=== PATIENT | male | born 1995 | race African-American/Black ===

== ENCOUNTER 2019-07-19 17:30 | Emergency (ER) | payer SELFPAY ==
[~2019-07-19] VITALS: Ht 177.8 cm; Wt 64.4 kg
[2019-07-19 18:06] VITALS: BP 129/76
[2019-07-19 18:28] LABS: BILIRUBIN,URINE NEG (NEG); CLARITY,URINE HAZY; COLOR,URINE YELLOW; GLUCOSE,URINE NEG (NEG)
[2019-07-19 18:29] LABS: BACTERIA,URINE 0 /HPF (0-FEW); NITRITE,URINE NEG (NEG); RBC,URINE 0 /HPF (0-2); SQUAMOUS EPITHELIAL CELL,UR OCC /LPF
--- NOTE | 2019-07-19 18:29 | PHYS DOC ---
Past History Past Medical History: No Pertinent History Past Surgical History: No Surgical History Alcohol Use: None Drug Use: None Adult General Chief Complaint Chief Complaint: SEXUALLY TRANSMITTED DISEASE.. ." I am sharing a STD with my girl friend.. we both got a discharge.. we were together for a while.. but then we were seeing other people.. and now we bact together... we both have a discharge..." HPI HPI Patient is a 24 year old male who presents with above hx and complaints dysuria and discharge on urination. Patient has been having unprotected sex with suspect individual. Patient has had approximately 20 unprotected sex partners in his life. Has had history of possible previous STDs. Patient states his last test for HIV was negative. No history immunosuppression. No history of travel. Is current and former girlfriend also has a discharge and dysuria. Both he presented to the emergency room room for treatment. Her name is Bailee Kim in Room 2#, Review of Systems Review of Systems Constitutional: Denies fever or chills [] Eyes: Denies change in visual acuity, redness, or eye pain [] HENT: Denies nasal congestion or sore throat [] Respiratory: Denies cough or shortness of breath [] Cardiovascular: No additional information not addressed in HPI [] GI: Denies abdominal pain, nausea, vomiting, bloody stools or diarrhea [] : Complaints of dysuria and penile discharge] Musculoskeletal: Denies back pain or joint pain [] Integument: Denies rash or skin lesions [] Neurologic: Denies headache, focal weakness or sensory changes [] Endocrine: Denies polyuria or polydipsia [] All other systems were reviewed and found to be within normal limits, except as documented in this note. Family History Family History Noncontributory Current Medications Current Medications See nursing for home meds Allergies Allergies Allergies Coded Allergies Type Severity Reaction Last Updated Verified No Known Drug Allergies 07/19/19 No Physical Exam Physical Exam Constitutional: Well developed, well nourished, no acute distress, non-toxic appearance. [] HENT: Normocephalic, atraumatic, bilateral external ears normal, oropharynx moist, no oral exudates, nose normal. [] Eyes: PERRLA, EOMI, conjunctiva normal, no discharge. [] Neck: Normal range of motion, no tenderness, supple, no stridor. [] Cardiovascular:Heart rate regular rhythm, no murmur [] Lungs & Thorax: Bilateral breath sounds with apex with few scattered wheezes on auscultation [] Abdomen: Bowel sounds normal, soft, no tenderness, no masses, no pulsatile masses. [] Circumcised male with mild penile discharge. Skin: Warm, dry, no erythema, no rash. [] Back: No tenderness, no CVA tenderness. [] Extremities: No tenderness, no cyanosis, no clubbing, ROM intact, no edema. [] Neurologic: Alert and oriented X 3, normal motor function, normal sensory function, no focal deficits noted. [] Psychologic: Affect anxious, judgement normal, mood normal. [] Current Patient Data Vital Signs Vital Signs Date Time Temp Pulse Resp B/P (MAP) Pulse Ox O2 Delivery O2 Flow Rate FiO2 07/19/19 18:06 82 18 98 Room Air EKG EKG [] Radiology/Procedures Radiology/Procedures [] Course & Med Decision Making Course & Med Decision Making Pertinent Labs and Imaging studies reviewed. (See chart for details) Patient practice safe sex. Patient take Keflex 500 mg 3 times a day. Patient follow-up pending cultures. May need retesting to make sure his dysuria has cleared. Inform all sexual partners. Follow-up health department and consider getting HIV testing. Patient also consider follow-up primary care and get HPV vaccination. Impression: 1. Urethritis 2. Suspect STD [] Dragon Disclaimer Dragon Disclaimer This electronic medical record was generated, in whole or in part, using a voice recognition dictation system. Departure Departure: Disposition: HOME/RESIDENCE PRIOR TO ADM Condition: STABLE Referrals: PCP,NO (PCP) Scripts Cephalexin (KEFLEX) 500 Mg Capsule 500 MG PO TID for urethritis for 7 Days, BOTTLE Prov: ZENOBIA LAIRD MD 07/19/19 [place] Disclaimer This chart was dictated in whole or in part using Voice Recognition software in a busy, high-work load, and often noisy Emergency Department environment. It may contain unintended and wholly unrecognized errors or omissions. ZENOBIA LAIRD MD Jul 19, 2019 18:28
[2019-07-19] MEDS ORDERED: metroNIDAZOLE 500 MG TABLET PO ONE (18:30)
[2019-07-19] MEDS ORDERED: AZITHROMYCIN 250 MG TABLET. PO ONE (18:30)
[2019-07-19] MEDS ORDERED: ONDANSETRON ODT 4 MG TAB.RAPDIS PO ONE (18:30)
[2019-07-19] MEDS ORDERED: cefTRIAXone IM 1 GM VIAL IM ONE (18:30)
[2019-07-19] MEDS ORDERED: CEPH-264 PO (18:37)
== END 2019-07-19 18:45 | disposition home or self-care (01) ==
LOC: ER 17:30
DX: A56.01 Chlamydial cystitis and urethritis (principal); Z20.2 Contact with and (suspected) exposure to infections with a predominantly sexual mode of transmission
CPT/HCPCS: 36415; 81001; 87491; 87591; 99284

== ENCOUNTER 2021-02-27 10:54 | Emergency (ER) | payer SELFPAY ==
[~2021-02-27] VITALS: Ht 175.3 cm; Wt 68.0 kg
[~2021-02-27 10:54] MED LIST: CEPH-264 PO
[2021-02-27 10:58] VITALS: BP 155/79
[2021-02-27 11:38] LABS: CALCIUM 8.7 mg/dL (8.5-10.1); CREATININE 1.3 mg/dL (0.7-1.3); GFR 81.4; POTASSIUM 3.7 mmol/L (3.5-5.1)
--- NOTE | 2021-02-27 11:39 | PHYS DOC ---
Past History Past Medical History: No Pertinent History (FELA CARNEY APRN) Past Surgical History: No Surgical History (FELA CARNEY APRN) Alcohol Use: Occasionally Drug Use: None (FELA CARNEY APRN) General Adult EDM: Chief Complaint: OVERDOSE HPI: HPI: Patient is a 25-year-old male who presents with EMS after being found on the side of the road with altered mental status. Patient states "my right treatment for talk about this morning to work, my boss ended up letting me go". "It was pouring down rain I did not have a ride so I started walking to my girlfriend's uncle's house, I got to [place] and is lasting you remember". EMS states that when patient was found he was altered, stumbling around. EMS gave 1 dose of Narcan and patient became more alert. Patient denies taking any drugs this m orning. Patient states he uses marijuana occasionally. Patient is alert and oriented and hemodynamically stable upon arrival to the ER. Patient denies pain. Denies medical history. (FELA CARNEY APRN) Review of Systems: Review of Systems: Constitutional: Denies fever or chills Eyes: Denies change in visual acuity HENT: Denies nasal congestion or sore throat Respiratory: Denies cough or shortness of breath Cardiovascular: Denies chest pain or edema GI: Denies abdominal pain, nausea, vomiting, bloody stools or diarrhea : Denies dysuria Musculoskeletal: Denies back pain or joint pain Integument: Denies rash Neurologic: Denies headache, focal weakness or sensory changes Endocrine: Denies polyuria or polydipsia Lymphatic: Denies swollen glands Psychiatric: Denies depression or anxiety (FELA CARNEY APRN) Allergies: Allergies: Allergies Coded Allergies Type Severity Reaction Last Updated Verified No Known Drug Allergies 07/19/19 No (FELA CARNEY APRN) Physical Exam: PE: Constitutional: Well developed, well nourished, no acute distress, non-toxic appearance. [] HENT: Normocephalic, atraumatic, bilateral external ears normal, oropharynx moist, no oral exudates, nose normal. [] Eyes: PERRLA, EOMI, conjunctiva normal, no discharge. [] Neck: Normal range of motion, no tenderness, supple, no stridor. [] Cardiovascular:Heart rate regular rhythm, no murmur [] Lungs & Thorax: Bilateral breath sounds clear to auscultation [] Abdomen: Bowel sounds normal, soft, no tenderness, no masses, no pulsatile masses. [] Skin: Warm, dry, no erythema, no rash. [] Back: No tenderness, no CVA tenderness. [] Extremities: No tenderness, no cyanosis, no clubbing, ROM intact, no edema. [] Neurologic: Alert and oriented X 3, normal motor function, normal sensory function, no focal deficits noted. [] Psychologic: Affect normal, judgement normal, mood normal. [] (FELA CARNEY APRN) Current Patient Data: Vital Signs: Vital Signs Date Time Temp Pulse Resp B/P (MAP) Pulse Ox O2 Delivery O2 Flow Rate FiO2 02/27/21 10:58 98.6 93 18 155/79 100 Room Air (FELA CARNEY APRN) EKG: EKG: Sinus rhythm. Heart rate [address] elevation or depression. Read by Dr. Rendon at 1334. [] (FELA CARNEY APRN) Radiology/Procedures: Radiology/Procedures: []CT brain without contrast. HISTORY: Confusion CT scan the brain was done without contrast. Sinuses are clear. There is no intracranial hemorrhage or subdural hematoma. There is no mass effect or shift of the midline. Ventricles are normal in size. An acute CVA is not identified. IMPRESSION: 1. No intracranial hemorrhage or acute finding noted. PQRS Compliance Statement: One or more of the following individualized dose reduction techniques were utilized for this examination: 1. Automated exposure control 2. Adjustment of the mA and/or kV according to patient size 3. Use of iterative reconstruction technique Electronically signed by: Frankie Pabon MD (02/27/2021 11:40 AM) [facility] (FELA CARNEY APRN) Heart Score: C/O Chest Pain: No Risk Factors: Risk Factors: DM, Current or recent (<one month) smoker, HTN, HLP, family history of CAD, obesity. Risk Scores: Score 0 - 3: 2.5% MACE over next 6 weeks - Discharge Home Score 4 - 6: 20.3% MACE over next 6 weeks - Admit for Clinical Observation Score 7 - 10: 72.7% MACE over next 6 weeks - Early Invasive Strategies (FELA CARNEY APRN) Course & Med Decision Making: Course & Med Decision Making Pertinent Labs and Imaging studies reviewed. (See chart for details) [] 25-year-old male presents with EMS after being found walking on the side of the road, stumbling, altered mental status. Patient states the last thing he remembers is walking to his girlfriend's uncle's house and then waking up with EMS. Patient was given Narcan by EMS. Patient is alert and oriented and hemodynamically stable on arrival. CT head ordered to rule out acute abnormalit y. UDS. Patient denies using any illegal drugs. CT head negative for acute abnormalities. All labs unremarkable. UDS positive for marijuana. Monitor the patient for 2 hours in emergency room due to EMS giving Narcan. Patient was alert and oriented and hemodynamically stable while in the ER and upon disposition. Gave patient strict return precautions. Patient states he understands discharge instructions. (FELA CARNEY APRN) Dragon Disclaimer: Dragon Disclaimer: This electronic medical record was generated, in whole or in part, using a voice recognition dictation system. (FELA CARNEY APRN) Attending Co-Sign The patient was seen and interviewed as well as examined at the bedside. The chart was reviewed. The case was discussed. Agree with the plan of care. (CRISTIAN RENDON DO) Departure Departure: Impression: Primary Impression: AMS (altered mental status) Qualified Codes: R41.82 - Altered mental status, unspecified Additional Impression: Overdose Qualified Codes: T50.901A - Poisoning by unspecified drugs, medicaments and biological substances, accidental (unintentional), initial encounter Disposition: HOME / SELF CARE / HOMELESS Condition: STABLE Referrals: PCP,NO (PCP) Patient Instructions: Altered Mental Status Additional Instructions: You are seen in the emergency room after being found on the side of the road altered. All of your labs were unremarkable . CT of your head was negative for any acute abnormalities. Please return to emergency room if you have worsening symptoms or concerns peer EMERGENCY DEPARTMENT GENERAL DISCHARGE INSTRUCTIONS Thank you for coming to [facility] (ED) today and trusting us with you care. We trust that you had a positivie experience in our Emergency Department. If you wish to speak to the department management, you may call the director at [phone]. YOUR FOLLOW UP INSTRUCTIONS ARE FOLLOWS: 1. Do you have a private Doctor? If you do not have a private doctor, please ask for a resource list of physicians or clinics that may be able to assist you with follow up care. 2. The Emergency Physician has interpreted your x-rays. The X-Ray specialist will also review them. If there is a change in the findings, you will be notified in 48 hours when at all possible. 3. A lab test or culture has been done, your results will be reviewed and you will be notified if you need a change in treatment. ADDITIONAL INSTRUCTIONS AND INFORMATION: 1. Your care today has been supervised by a physician who is specially trained in emergency care. Many problems require more than one evaluation for a complete diagnosis and treatment. We recommend that you schedule your follow up appointment as recommended to ensure complete treatment of you illness or injury. If you are unable to obtain follow up care and continue to have a problem, or if your condition worsens, we recommend that you return to the ED. 2. We are not able to safely determine your condition over the phone nor are we able to give sound medical advice over the phone. For these safety reasons, if you call for medical advice we will ask you to come to the ED for further evaluation. 3. If you have any questions regarding these discharge instructions please call the ED at [phone]. SAFETY INFORMATION: In the interest of safety, wellness, and injury prevention; we encourage you to wear your sealbelt, if you smoke; quite smoking, and we encourage family to use a protective helmet for bicycling and other sporting events that present an increased risk for head injury. IF YOUR SYMPTOMS WORSEN OR NEW SYMPTOMS DEVELOP, OR YOU HAVE CONCERNS ABOUT YOUR CONDITION; OR IF YOUR CONDITION WORSENS WHILE YOU ARE WAITING FOR YOUR FOLLOW UP APPOINTMENT; EITHER CONTACT YOUR PRIMARY CARE DOCTOR, THE PHYSICIAN WHOSE NAME AND NUMBER YOU WERE GIVEN, OR RETURN TO THE ED IMMEDIATELY. FELA CARNEY APRN Feb 27, 2021 11:39 CRISTIAN RENDON DO Mar 01, 2021 06:19
--- NOTE | 2021-02-27 11:42 | RAD ---
CT brain without contrast. HISTORY: Confusion CT scan the brain was done without contrast. Sinuses are clear. There is no intracranial hemorrhage o r subdural hematoma. There is no mass effect or shift of the midline. Ventricles are normal in size. An acute CVA is not identified. IMPRESSION: 1. No intracranial hemorrhage or acute finding noted. PQRS Compliance Statement: One or more of the following individualized dose reduction techniques were utilized for this examinat ion: 1. Automated exposure control 2. Adjustment of the mA and/or kV according to patient size 3. Use of iterative reconstruction technique Electronically signed by: Frankie Pabon MD (02/27/2021 11:40 AM) [facility]
[2021-02-27 11:44] LABS: ALBUMIN 4.2 g/dL (3.4-5.0); ALBUMIN/GLOBULIN RATIO 1.1 (1.0-1.7); BASO % 0 % (0-3); EOS # 0.2 x10^3/uL (0.0-0.7); EOS % 2 % (0-3); HEMOGLOBIN 14.2 g/dL (13.0-17.5); LYMPH # 2.1 x10^3/uL (1.0-4.8); LYMPH % 23 % (24-48); MEAN CORPUSCULAR HEMOGLOBIN 30 pg (25-35); MEAN CORPUSCULAR HGB CONC 33 g/dL (31-37); MEAN CORPUSCULAR VOLUME 91 fL (79-100); MONO # 0.8 x10^3/uL (0.0-1.1); MONO % 8 % (0-9); NEUT # 5.9 x10^3uL (1.8-7.7); NEUT % 66 % (31-73); PLATELET COUNT 302 x10^3/uL (140-400); RED BLOOD COUNT 4.72 x10^6/uL (4.30-5.70); RED CELL DISTRIBUTION WIDTH 14.6 % (11.5-14.5); TOTAL BILIRUBIN 0.3 mg/dL (0.2-1.0); TOTAL PROTEIN 7.9 g/dL (6.4-8.2); WHITE BLOOD COUNT 8.9 x10^3/uL (4.0-11.0)
[2021-02-27 12:01] LABS: BARBITURATES NEG (NEG); BENZODIAZEPINES NEG (NEG); CANNABINOIDS POS (NEG); COCAINE NEG (NEG); METHADONE NEG (NEG); OPIATES NEG (NEG); PHENCYCLIDINE NEG (NEG)
[2021-02-27 12:03] LABS: AMPHETAMINE/METHAMPHETAMINE NEG (NEG)
--- NOTE | 2021-02-27 13:37 | EKG ---
[address] [address] Test Date: 2021-02-27 Test Time: 13:29:48 Pat Name: PAIGE RUSSELLDonVikas Department: Room: Gender: M Information Technology Director: QUIQUE : 1995 Requested By: FELA CARNEY Order Number: [id number] Reading MD: Measurements Intervals Garita Rate: 83 P: 59 IA: 146 QRS: 48 QRSD: 96 T: 38 QT: 356 QTc: 419 Interpretive Statements SINUS RHYTHM OTHERWISE NORMAL ECG RI6.02 No previous ECG available for comparison
== END 2021-02-27 14:50 | disposition home or self-care (01) ==
LOC: ER 10:54
DX: T50.901A Poisoning by unspecified drugs, medicaments and biological substances, accidental (unintentional), initial encounter (principal); R41.82 Altered mental status, unspecified; Y92.89 Other specified places as the place of occurrence of the external cause
CPT/HCPCS: 36415; 70450; 80053; 80307; 85025; 93005; 99285